=== PATIENT | male | born 1980 | race Caucasian/White ===

== ENCOUNTER 2017-12-08 21:35 | Observation (INO) ==
[2017-12-08] MEDS ORDERED: LORazepam 2 MG/1 ML VIAL IV STA (23:00)
[2017-12-08] MEDS ORDERED: LORazepam 2 MG/1 ML VIAL ONE (23:11)
[2017-12-08 23:29] LABS: Basophils % 0.4 % (0.0-0.8); Eosinophils # 0.2 10*3/uL (0.0-0.87); Hematocrit 46.3 VOL% (42.0-52.0); Hemoglobin 16.2 GM/DL (14.0-18.0); Immature Granulocytes % 0.7 %; Immature Granulocytes Absolute 0.06 #; Lymphocytes # 2.6 10*3/uL (1.4-4.0); Lymphocytes % 32.1 % (21.2-54.2); Mean Corpuscular Hemoglobin 31 PG (27-34); Mean Corpuscular Volume 89.6 FL (87-102); Mean Platelet Volume 9.7 FL (9.6-12.0); Monocytes # 0.7 10*3/uL (0.11-0.8); Monocytes % 8.1 % (1.7-12.7); Neutrophils # 4.7 10*3/uL (1.4-7.4); Neutrophils % 56.7 % (38.7-73.9); Platelet Count 250 T/CUMM (130-400); Red Blood Count 5.17 MC/CUMM (3.8-5.5); Red Cell Distribution Width 11.9 % (9.3-17.3); White Blood Count 8.2 T/CUMM (4-12)
[2017-12-08 23:53] LABS: Alanine Aminotransferase 46 U/L (16-61); Alkaline Phosphatase 88 U/L (45-117); Aspartate Amino Transferase 16 U/L (0-37); Blood Urea Nitrogen 20 MG/DL (7-18); Calcium 9.1 MG/DL (8.5-10.1); Glucose 93 MG/DL (74-106); Osmolality,Calculated 275.8 MOS/KG (273-304); Potassium 3.5 MMOL/L (3.5-5.1); Sodium 137 MMOL/L (136-145); Total Protein 6.9 G/DL (6.4-8.3); Troponin I Only < 0.015 NG/ML (0.00-0.045)
[2017-12-09] MEDS ORDERED: ACETAMINOPHEN 325 MG TABLET PO PRN (02:14)
[2017-12-09] MEDS ORDERED: ONDANSETRON 4 MG/2 ML VIAL IV PRN (02:14)
[2017-12-09] MEDS ORDERED: MORPHINE 10 MG/1 ML VIAL IV PRN (02:14)
[2017-12-09 06:16] LABS: Basophils % 0.4 % (0.0-0.8); Eosinophils # 0.2 10*3/uL (0.0-0.87); Eosinophils % 2.4 % (0.00-10.9); Hematocrit 46.1 VOL% (42.0-52.0); Hemoglobin 16.6 GM/DL (14.0-18.0); Immature Granulocytes % 0.6 %; Immature Granulocytes Absolute 0.04 #; Lymphocytes # 1.9 10*3/uL (1.4-4.0); Lymphocytes % 26.6 % (21.2-54.2); Mean Corpuscular Hemoglobin 32 PG (27-34); Mean Corpuscular Volume 87.5 FL (87-102); Monocytes # 0.5 10*3/uL (0.11-0.8); Monocytes % 7.7 % (1.7-12.7); Neutrophils # 4.3 10*3/uL (1.4-7.4); Neutrophils % 62.3 % (38.7-73.9); Platelet Count 242 T/CUMM (130-400); Red Blood Count 5.27 MC/CUMM (3.8-5.5); Red Cell Distribution Width 12.2 % (9.3-17.3)
[2017-12-09 06:48] LABS: Calcium 9.1 MG/DL (8.5-10.1); Osmolality,Calculated 282.3 MOS/KG (273-304); Potassium 3.8 MMOL/L (3.5-5.1); Risk Ratio 3.63; Thyroid Stimulating Hormone 1.95 uIU/ml (0.358-3.74)
[2017-12-09] MEDS ORDERED: PNEUMOCOCCAL VACCINE (13 VALENT) 0.5 ML SYRINGE IM ONE (09:00)
[2017-12-09] MEDS: ENOXAPARIN 40 MG/0.4 ML SYRINGE SUBCUT SCH (09:26)
[2017-12-09] MEDS: PANTOPRAZOLE 40 MG TABLET PO SCH (09:26)
[2017-12-09] MEDS ORDERED: POTASSIUM CHLORIDE RIDER 10 MEQ in PREMIX 1 EACH IV PRN (11:34)
[2017-12-09] MEDS ORDERED: MAGNESIUM SULF RIDER 2 GM in PREMIX 1 EACH IV PRN (11:34)
[2017-12-09] MEDS: ATORVASTATIN 80 MG TABLET PO SCH (15:42)
[2017-12-09] MEDS: ASPIRIN CHEW 81 MG TABLET PO SCH (15:42)
[2017-12-09 19:28] LABS: PT Patient Result 10.3 SECS
[2017-12-10] MEDS ORDERED: DIAZEPAM 5 MG TABLET PO ONE (06:00)
[2017-12-10] MEDS ORDERED: diphenhydrAMINE CAP 25 MG CAPSULE PO ONE (06:00)
[2017-12-10] MEDS ORDERED: NITROGLYCERIN DRIP 50 MG/250 ML BOTTLE IV ONE (09:07)
[2017-12-10] MEDS ORDERED: LIDOCAINE 1% 20 ML VIAL ONE (09:07)
[2017-12-10] MEDS ORDERED: HYDROmorphone 2 MG/1 ML VIAL ONE (09:08)
[2017-12-10] MEDS ORDERED: VERAPAMIL 5 MG/2 ML VIAL ONE ×2 (09:08→09:55)
[2017-12-10] MEDS ORDERED: MIDAZOLAM 2 MG/2 ML VIAL ONE (09:08)
[2017-12-10] MEDS ORDERED: ENOXAPARIN 60 MG/0.6 ML SYRINGE ONE (09:22)
[2017-12-10] MEDS: ASPIRIN CHEW 81 MG TABLET PO SCH (11:09)
[2017-12-10] MEDS: ROSUVASTATIN 20 MG TABLET PO SCH (11:09)
[2017-12-10] MEDS: DILTIAZEM CD 120 MG CAPSULE PO SCH (11:10)
[2017-12-10] MEDS: PANTOPRAZOLE 40 MG TABLET PO SCH (11:12)
[2017-12-10] MEDS: ATORVASTATIN 80 MG TABLET PO SCH (11:36)
[2017-12-10] MEDS: ENOXAPARIN 40 MG/0.4 ML SYRINGE SUBCUT SCH (11:36)
[2017-12-10] MEDS: IPRATROPIUM 500 MCG/2.5 ML NEB RESP TX SCH (19:46)
[2017-12-10] MEDS: MONTELUKAST 10 MG TABLET PO SCH (20:55)
[2017-12-11] MEDS: IPRATROPIUM 500 MCG/2.5 ML NEB RESP TX SCH ×2 (01:29→07:53)
[2017-12-11 07:24] LABS: Basophils % 0.3 % (0.0-0.8); Eosinophils # 0.3 10*3/uL (0.0-0.87); Eosinophils % 3.5 % (0.00-10.9); Hematocrit 49.5 VOL% (42.0-52.0); Immature Granulocytes % 0.6 %; Immature Granulocytes Absolute 0.05 #; Lymphocytes # 1.6 10*3/uL (1.4-4.0); Lymphocytes % 19.9 % (21.2-54.2); Mean Corpuscular HGB Conc 34.3 GM/DL (32-36); Mean Corpuscular Hemoglobin 31 PG (27-34); Mean Corpuscular Volume 90.7 FL (87-102); Mean Platelet Volume 10.2 FL (9.6-12.0); Monocytes # 0.6 10*3/uL (0.11-0.8); Monocytes % 7.1 % (1.7-12.7); Neutrophils # 5.3 10*3/uL (1.4-7.4); Neutrophils % 68.6 % (38.7-73.9); Platelet Count 235 T/CUMM (130-400); Red Blood Count 5.46 MC/CUMM (3.8-5.5); Red Cell Distribution Width 12.2 % (9.3-17.3); White Blood Count 7.8 T/CUMM (4-12)
[2017-12-11 07:51] LABS: Calcium 9.1 MG/DL (8.5-10.1); Osmolality,Calculated 278.5 MOS/KG (273-304); Potassium 4.2 MMOL/L (3.5-5.1)
[2017-12-11] MEDS: ROSUVASTATIN 20 MG TABLET PO SCH (08:46)
[2017-12-11] MEDS: MONTELUKAST 10 MG TABLET PO SCH (08:46)
[2017-12-11] MEDS: ASPIRIN CHEW 81 MG TABLET PO SCH (08:47)
[2017-12-11] MEDS: PANTOPRAZOLE 40 MG TABLET PO SCH (08:47)
[2017-12-11] MEDS: DILTIAZEM CD 120 MG CAPSULE PO SCH (08:47)
[2017-12-11 12:03] VITALS: BP 147/76
== END 2017-12-11 13:42 | disposition home or self-care (01) ==
LOC: N.EDINP 21:35 → N.ED 21:35 → SUATTDRO 12-09 01:46 → N.5E 12-09 02:44
PROVIDERS: ADMIT Internal Medicine; ATTEND Internal Medicine
PROC: CLCCHCL (ICD-10-PCS; 2017-12-10 10:45)